=== PATIENT | female | born 1990 | race Caucasian/White ===

== ENCOUNTER 2020-09-18 09:41 | Emergency (ER) | payer SELFPAY ==
[2020-09-18 09:44] VITALS: BP 120/86; PULSE 133; RESP 18; TEMP 36.5; O2SAT 98; BMI 22.1
--- NOTE | 2020-09-18 09:53 | W.ED.FEMALGU ---
Documented by User: MACHO Soliz 09/18/20 17:29 HPI - Female Genitourinary General: Chief complaint: Urogenital-Female Stated complaint: knee pain/nausea/possible kidney infection Time Seen by Provider: 09/18/20 09:48 History of Present Illness: HPI Narrative: Patient is a 30-year-old female comes to the ED with UTI symptoms and back pain. Patient says she started developing dysuria, increased urine frequency and cloudy urine approximately 2 weeks ago. She says over the past several days she started developing some right and left flank pain. She has not been taking any antibiotic to treat her UTI. Associated symptoms: Reports abdominal pain (lower pelvis) and nausea; Deny headache(s) Review of Systems Const: Denies: fever(s), chills or fatigue Eyes: Denies: change in vision or eye discomfort ENMT: Denies: throat pain, odynophagia, nasal discharge or nasal congestion Card: Denies: chest pain, palpitations, edema, swelling of feet/ankles, dyspnea on exertion or orthopnea Resp: Denies: dyspnea, productive cough or non-productive cough GI: Reports: abdominal pain (lower pelvis) and nausea; Denies: vomiting, diarrhea, constipation or hematochezia : Reports: flank pain (bilateral); Denies: dysuria or hematuria Musc: Denies: neck pain, back pain or extremity swelling Skin/Breast: Denies: rash or new lesions Neuro: Denies: headache(s), numbness in extremities or weakness in extremities PFS ED PFSH: Social History Smoking and tobacco status: current every day smoker Physical Exam Const: COMMON NORMALS: no acute distress, patient oriented x3, healthy appearing and alert GENERAL APPEARANCE: cooperative and comfortable HENMT: COMMON NORMALS: normocephalic HEAD & SCALP: normocephalic MOUTH: Normal oral and palatal mucosa present THROAT: posterior oropharynx normal and uvula midline Eye: COMMON NORMALS: Equal, round and reactive pupils present PUPIL: Yes Equal, round and reactive pupils present Neck/C-Spine: COMMON NORMALS: supple GENERAL: Yes normal visual inspection Resp: COMMON NORMALS: normal respiratory effort, No retractions, No use of accessory muscles and clear to auscultation bilaterally AUSCULTATION: clear to auscultation bilaterally Cardio: COMMON NORMALS: regular rate, regular rhythm, S1 normal heart sound present, S2 normal heart sound present, No gallops present (Cardio), No clicks present (Cardio), No murmurs present (Cardio) and Peripheral pulses 2+ throughout RATE: regular rate RHYTHM: regular rhythm HEART SOUNDS: S1 normal heart sound present and S2 normal heart sound present PERIPHERAL PULSES: Peripheral pulses 2+ throughout GI: COMMON NORMALS: Normal to inspection, nondistended, normoactive bowel sounds present, Soft to palpation and no masses PALPATION: Yes Soft to palpation and Yes Tenderness to palpation present (GI) (Mild tenderness on the lower pelvis over bladder.) OTHER: No right upper quadrant tenderness. : BLADDER/KIDNEY EXAM: Yes CVA tenderness bilateral Back/Pelvis: GENERAL BACK: Yes CVA tenderness Extremity: COMMON NORMALS: normal to inspection and no pedal edema Neuro: COMMON NORMALS: patient oriented x3 and moves all extremities SENSORIUM/ORIENTATION: Yes alert Skin: GENERAL SKIN EXAM: dry skin Course Reevaluation(s): Reevaluation #1: Talk to patient about her elevated ALT and AST liver enzymes. Patient says she is not an IV drug user but does state that she drinks more alcohol than she should have daily. I told patient we will go to check her for hepatitis. Vital Signs: Vital signs: Vital Signs Temperature 97.7 F 09/18/20 09:44 Pulse Rate 90 09/18/20 13:42 Respiratory Rate 15 09/18/20 13:42 Blood Pressure 122/90 09/18/20 13:42 Pulse Oximetry 100 09/18/20 13:42 MDM - Female MDM Narrative: Medical decision making narrative: Patient is a 30-year-old female comes to the ED with right left flank pain, nausea and UTI symptoms. Patient had CVA tenderness bilaterally. She also had some tenderness on the left lower pelvic region and over bladder. No right upper quadrant tenderness. UA positive for UTI. White blood cell count 1.9, hemoglobin 19.2 and the rest of CBC unremarkable. AST 805, ALT 643 and alk phos 208. Rest of CMP unremarkable. Hepatitis panel performed and showed she was positive for hep A. Lactic 0.7. Patient was diagnosed with hep A and pyelonephritis. While in the ED she was given IV fluids, Zofran, Toradol and 2 g of Rocephin. She was given instructions about hepatitis a and told she needs to contact her PCP on Saturday morning to follow-up with them about medical management. She was discharged with some Zofran and levofloxacin. Patient was also encouraged to decrease alcohol intake and she was instructed on hepatitis A is highly contagious and instructed on how to prevent transmission. Return to ED precautions given. Patient understood and agreed with plan. Lab Data: Attestation: I reviewed the patient's lab results. Labs: Lab Results 09/18/20 09/18/20 09/18/20 Range/Units 10:17 10:21 10:21 WBC 1.9 L (4.0-10.0) 10^3/ uL RBC 5.52 H (4.1-5.3) 10^6/u L Hgb 19.2 H (11.5-15.3) g/dL Hct 55.3 H (37.0-47.0) % MCV 100.2 H (81-99) fL MCH 34.8 H (28.0-34.0) pg MCHC 34.7 (30.0-36.0) g/dL RDW 13.2 (12.1-15.1) % Plt Count 116 L (130-400) 10^3/c mm MPV 11.1 H (7.4-10.4) fL Neut % (Auto) 52.1 % Lymph % (Auto) 36.3 % [place] % (Auto) 9.5 % Eos % (Auto) 0.5 % Baso % (Auto) 1.1 % Neut # (Auto) 0.99 L (1.8-7.7) 10^3/u L Lymph # (Auto) 0.7 L (0.8-4.8) 10^3/u L [place] # (Auto) 0.2 (0.2-0.9) 10^3/u L Eos # (Auto) 0.0 (0.0-0.8) 10^3/u L Baso # (Auto) 0.0 (0.0-0.1) 10^3/u L Nucleated RBC % (a uto) 0 % Nucleated RBCs # 0.0 /100WBC PT (12.1-14.9) SECO NDS INR (0.8-1.2) Sodium 134 L (136-145) mmol/L Potassium 3.6 (3.5-5.1) mmol/L Chloride 95 L (98-107) mmol/L Carbon Dioxide 27 (22-29) mmol/L Anion Gap 15.6 (5-19) BUN 5 L (6-20) mg/dL Creatinine 0.7 (0.5-0.9) mg/dL GFR Calculation 97.6 (90-130) mL/min Glucose 94 (65-115) mg/dL Calculated Osmolal ity 275 L (285-295) mOsm/k g Lactic Acid (0.5-2.2) mmol/L Calcium 9.1 (8.5-10.5) mg/dL Total Bilirubin 1.0 (0.15-1.2) mg/dL AST 805 H (0-32) U/L ALT 643 H (0-33) U/L Alkaline Phosphata se 208 H (35-105) IU/L Total Protein 7.3 (6.6-8.7) g/dL Albumin 4.4 (3.5-5.2) g/dL Globulin 2.9 (1.3-4.6) g/dL HCG, Qual (Negative) Urine Color Yellow (Yellow) Urine Appearance Hazy A (CLEAR) Urine pH 5 (5-7) Ur Specific Gravit y 1.010 (1.005-1.030) Urine Protein Neg (Negative) Urine Glucose (UA) Norm (Normal) Urine Ketones 2+ H (Negative) Urine Blood Trace H (Negative) Urine Nitrate Positive H (Negative) Urine Bilirubin 1+ H (Negative) Urine Urobilinogen 4 H (Negative) mg/dL Ur Leukocyte Anny ase 1+ H (Negative) Urine RBC 0-4 H (0-2) /hpf Urine WBC 10-15 H (0-5) /hpf Ur Squamous Epith Cells 10-15 H (0-5) /hpf Amorphous Sediment Not Reportable Urine Bacteria 2+ H (NONE) /hpf Urine Mucus Trace /hpf Hepatitis A IgM Ab (Nonreactive) Hep Bs Antigen (Nonreactive) Hep Bs Antibody (0-8.5) Hep B Core Total A b (Nonreactive) Hepatitis C Antibo dy (Nonreactive) 09/18/20 09/18/20 09/18/20 Range/Units 10:21 10:21 10:21 WBC (4.0-10.0) 10^3/ uL RBC (4.1-5.3) 10^6/u L Hgb (11.5-15.3) g/dL Hct (37.0-47.0) % MCV (81-99) fL MCH (28.0-34.0) pg MCHC (30.0-36.0) g/dL RDW (12.1-15.1) % Plt Count (130-400) 10^3/c mm MPV (7.4-10.4) fL Neut % (Auto) % Lymph % (Auto) % [place] % (Auto) % Eos % (Auto) % Baso % (Auto) % Neut # (Auto) (1.8-7.7) 10^3/u L Lymph # (Auto) (0.8-4.8) 10^3/u L [place] # (Auto) (0.2-0.9) 10^3/u L Eos # (Auto) (0.0-0.8) 10^3/u L Baso # (Auto) (0.0-0.1) 10^3/u L Nucleated RBC % (a uto) % Nucleated RBCs # /100WBC PT 14.60 (12.1-14.9) SECO NDS INR 1.11 (0.8-1.2) Sodium (136-145) mmol/L Potassium (3.5-5.1) mmol/L Chloride (98-107) mmol/L Carbon Dioxide (22-29) mmol/L Anion Gap (5-19) BUN (6-20) mg/dL Creatinine (0.5-0.9) mg/dL GFR Calculation (90-130) mL/min Glucose (65-115) mg/dL Calculated Osmolal ity (285-295) mOsm/k g Lactic Acid (0.5-2.2) mmol/L Calcium (8.5-10.5) mg/dL Total Bilirubin (0.15-1.2) mg/dL AST (0-32) U/L ALT (0-33) U/L Alkaline Phosphata se (35-105) IU/L Total Protein (6.6-8.7) g/dL Albumin (3.5-5.2) g/dL Globulin (1.3-4.6) g/dL HCG, Qual Negative (Negative) Urine Color (Yellow) Urine Appearance (CLEAR) Urine pH (5-7) Ur Specific Gravit y (1.005-1.030) Urine Protein (Negative) Urine Glucose (UA) (Normal) Urine Ketones (Negative) Urine Blood (Negative) Urine Nitrate (Negative) Urine Bilirubin (Negative) Urine Urobilinogen (Negative) mg/dL Ur Leukocyte Anny ase (Negative) Urine RBC (0-2) /hpf Urine WBC (0-5) /hpf Ur Squamous Epith Cells (0-5) /hpf Amorphous Sediment Urine Bacteria (NONE) /hpf Urine Mucus /hpf Hepatitis A IgM Ab Reactive H (Nonreactive) Hep Bs Antigen Non-reactive (Nonreactive) Hep Bs Antibody 355.5 H (0-8.5) Hep B Core Total A b Non-reactive (Nonreactive) Hepatitis C Antibo dy Non-reactive (Nonreactive) 09/18/20 Range/Units 11:59 WBC (4.0-10.0) 10^3/ uL RBC (4.1-5.3) 10^6/u L Hgb (11.5-15.3) g/dL Hct (37.0-47.0) % MCV (81-99) fL MCH (28.0-34.0) pg MCHC (30.0-36.0) g/dL RDW (12.1-15.1) % Plt Count (130-400) 10^3/c mm MPV (7.4-10.4) fL Neut % (Auto) % Lymph % (Auto) % [place] % (Auto) % Eos % (Auto) % Baso % (Auto) % Neut # (Auto) (1.8-7.7) 10^3/u L Lymph # (Auto) (0.8-4.8) 10^3/u L [place] # (Auto) (0.2-0.9) 10^3/u L Eos # (Auto) (0.0-0.8) 10^3/u L Baso # (Auto) (0.0-0.1) 10^3/u L Nucleated RBC % (a uto) % Nucleated RBCs # /100WBC PT (12.1-14.9) SECO NDS INR (0.8-1.2) Sodium (136-145) mmol/L Potassium (3.5-5.1) mmol/L Chloride (98-107) mmol/L Carbon Dioxide (22-29) mmol/L Anion Gap (5-19) BUN (6-20) mg/dL Creatinine (0.5-0.9) mg/dL GFR Calculation (90-130) mL/min Glucose (65-115) mg/dL Calculated Osmolal ity (285-295) mOsm/k g Lactic Acid 0.7 (0.5-2.2) mmol/L Calcium (8.5-10.5) mg/dL Total Bilirubin (0.15-1.2) mg/dL AST (0-32) U/L ALT (0-33) U/L Alkaline Phosphata se (35-105) IU/L Total Protein (6.6-8.7) g/dL Albumin (3.5-5.2) g/dL Globulin (1.3-4.6) g/dL HCG, Qual (Negative) Urine Color (Yellow) Urine Appearance (CLEAR) Urine pH (5-7) Ur Specific Gravit y (1.005-1.030) Urine Protein (Negative) Urine Glucose (UA) (Normal) Urine Ketones (Negative) Urine Blood (Negative) Urine Nitrate (Negative) Urine Bilirubin (Negative) Urine Urobilinogen (Negative) mg/dL Ur Leukocyte Anny ase (Negative) Urine RBC (0-2) /hpf Urine WBC (0-5) /hpf Ur Squamous Epith Cells (0-5) /hpf Amorphous Sediment Urine Bacteria (NONE) /hpf Urine Mucus /hpf Hepatitis A IgM Ab (Nonreactive) Hep Bs Antigen (Nonreactive) Hep Bs Antibody (0-8.5) Hep B Core Total A b (Nonreactive) Hepatitis C Antibo dy (Nonreactive) Discharge Plan Discharge Patient Disposition: Home Clinical Impression: Pyelonephritis Hepatitis A Qualifiers: Hepatic coma status: without hepatic coma Qualified Code(s): B15.9 - Hepatitis A without hepatic coma Condition: Stable Prescriptions: New Zofran 4 mg tablet 4 mg PO Q8H Qty: 20 RF: 0 levofloxacin 750 mg tablet 750 mg PO DAILY 5 Days Qty: 5 RF: 0 No Action ibuprofen 200 mg Tablet 400 mg PO PRN RF: 0 Xanax 1 tab PO BID PRN (Reason: UNKNOWN) RF: 0 Discharge Orders: Discharge Order (Routine); Ordered 09/18/20 Ordered By: Mychal Guo Referrals: Juliano Villa, DO [Primary Care Provider] - Discharge Diet: Advance as tolerated Discharge Activity: Increase activity as tolerated Patient Instructions: Hepatitis A, Viral Hepatitis A (ED), Acute Pyelonephritis (ED) Activity Restrictions/Additional Instructions: Follow-up with medical provider as directed. Contact your PCP tomorrow to set up an appointment and discuss hepatitis A management. Take medications as prescribed. Return to the ER or your medical provider if condition worsens. Please read and understand discharge instructions. If any questions, please ask. Discharge Date/Time: 09/18/20 13:43 Coding Level of Care Code ED Depilatory Painter for Chg Fwd Exam Comprehensive Documented by User: Filomena Benitez MD 09/22/20 07:13 HPI - Female Genitourinary General: Chief complaint: Urogenital-Female Stated complaint: knee pain/nausea/possible kidney infection Time Seen by Provider: 09/18/20 09:48 [facility] PFSH: Social History Smoking and tobacco status: current every day smoker Course ED course: I saw this patient with MACHO Soliz. She is here with a UTI and has had symptoms consistent with that. On work-up we found markedly elevated LFTs. This prompted further evaluation and we feel that she was positive for hepatitis a. I examined her and found very minimal tenderness in the right upper quadrant. We had a lengthy discussion about what a diagnosis of hepatitis a signifies, expected course of illness, potential complications, need for follow-up. We also discussed that this is infectious and may be infectious for weeks. She has follow-up with her primary care doctor and understands return precautions. Vital Signs: Vital signs: Vital Signs Temperature 97.7 F 11/01/20 09:44 Pulse Rate 90 09/18/20 13:42 Respiratory Rate 15 09/18/20 13:42 Blood Pressure 122/90 09/18/20 13:42 Pulse Oximetry 100 09/18/20 13:42 MDM - Female Lab Data: Labs: Lab Results 09/18/20 09/18/20 09/18/20 Range/Units 10:17 10:21 10:21 WBC 1.9 L (4.0-10.0) 10^3/ uL RBC 5.52 H (4.1-5.3) 10^6/u L Hgb 19.2 H (11.5-15.3) g/dL Hct 55.3 H (37.0-47.0) % MCV 100.2 H (81-99) fL MCH 34.8 H (28.0-34.0) pg MCHC 34.7 (30.0-36.0) g/dL RDW 13.2 (12.1-15.1) % Plt Count 116 L (130-400) 10^3/c mm MPV 11.1 H (7.4-10.4) fL Neut % (Auto) 52.1 % Lymph % (Auto) 36.3 % [place] % (Auto) 9.5 % Eos % (Auto) 0.5 % Baso % (Auto) 1.1 % Neut # (Auto) 0.99 L (1.8-7.7) 10^3/u L Lymph # (Auto) 0.7 L (0.8-4.8) 10^3/u L [place] # (Auto) 0.2 (0.2-0.9) 10^3/u L Eos # (Auto) 0.0 (0.0-0.8) 10^3/u L Baso # (Auto) 0.0 (0.0-0.1) 10^3/u L Nucleated RBC % (a uto) 0 % Nucleated RBCs # 0.0 /100WBC PT (12.1-14.9) SECO NDS INR (0.8-1.2) Sodium 134 L (136-145) mmol/L Potassium 3.6 (3.5-5.1) mmol/L Chloride 95 L (98-107) mmol/L Carbon Dioxide 27 (22-29) mmol/L Anion Gap 15.6 (5-19) BUN 5 L (6-20) mg/dL Creatinine 0.7 (0.5-0.9) mg/dL GFR Calculation 97.6 (90-130) mL/min Glucose 94 (65-115) mg/dL Calculated Osmolal ity 275 L (285-295) mOsm/k g Lactic Acid (0.5-2.2) mmol/L Calcium 9.1 (8.5-10.5) mg/dL Total Bilirubin 1.0 (0.15-1.2) mg/dL AST 805 H (0-32) U/L ALT 643 H (0-33) U/L Alkaline Phosphata se 208 H (35-105) IU/L Total Protein 7.3 (6.6-8.7) g/dL Albumin 4.4 (3.5-5.2) g/dL Globulin 2.9 (1.3-4.6) g/dL HCG, Qual (Negative) Urine Color Yellow (Yellow) Urine Appearance Hazy A (CLEAR) Urine pH 5 (5-7) Ur Specific Gravit y 1.010 (1.005-1.030) Urine Protein Neg (Negative) Urine Glucose (UA) Norm (Normal) Urine Ketones 2+ H (Negative) Urine Blood Trace H (Negative) Urine Nitrate Positive H (Negative) Urine Bilirubin 1+ H (Negative) Urine Urobilinogen 4 H (Negative) mg/dL Ur Leukocyte Anny ase 1+ H (Negative) Urine RBC 0-4 H (0-2) /hpf Urine WBC 10-15 H (0-5) /hpf Ur Squamous Epith Cells 10-15 H (0-5) /hpf Amorphous Sediment Not Reportable Urine Bacteria 2+ H (NONE) /hpf Urine Mucus Trace /hpf Hepatitis A IgM Ab (Nonreactive) Hep Bs Antigen (Nonreactive) Hep Bs Antibody (0-8.5) Hep B Core Total A b (Nonreactive) Hepatitis C Antibo dy (Nonreactive) 09/18/20 09/18/20 09/18/20 Range/Units 10:21 10:21 10:21 WBC (4.0-10.0) 10^3/ uL RBC (4.1-5.3) 10^6/u L Hgb (11.5-15.3) g/dL Hct (37.0-47.0) % MCV (81-99) fL MCH (28.0-34.0) pg MCHC (30.0-36.0) g/dL RDW (12.1-15.1) % Plt Count (130-400) 10^3/c mm MPV (7.4-10.4) fL Neut % (Auto) % Lymph % (Auto) % [place] % (Auto) % Eos % (Auto) % Baso % (Auto) % Neut # (Auto) (1.8-7.7) 10^3/u L Lymph # (Auto) (0.8-4.8) 10^3/u L [place] # (Auto) (0.2-0.9) 10^3/u L Eos # (Auto) (0.0-0.8) 10^3/u L Baso # (Auto) (0.0-0.1) 10^3/u L Nucleated RBC % (a uto) % Nucleated RBCs # /100WBC PT 14.60 (12.1-14.9) SECO NDS INR 1.11 (0.8-1.2) Sodium (136-145) mmol/L Potassium (3.5-5.1) mmol/L Chloride (98-107) mmol/L Carbon Dioxide (22-29) mmol/L Anion Gap (5-19) BUN (6-20) mg/dL Creatinine (0.5-0.9) mg/dL GFR Calculation (90-130) mL/min Glucose (65-115) mg/dL Calculated Osmolal ity (285-295) mOsm/k g Lactic Acid (0.5-2.2) mmol/L Calcium (8.5-10.5) mg/dL Total Bilirubin (0.15-1.2) mg/dL AST (0-32) U/L ALT (0-33) U/L Alkaline Phosphata se (35-105) IU/L Total Protein (6.6-8.7) g/dL Albumin (3.5-5.2) g/dL Globulin (1.3-4.6) g/dL HCG, Qual Negative (Negative) Urine Color (Yellow) Urine Appearance (CLEAR) Urine pH (5-7) Ur Specific Gravit y (1.005-1.030) Urine Protein (Negative) Urine Glucose (UA) (Normal) Urine Ketones (Negative) Urine Blood (Negative) Urine Nitrate (Negative) Urine Bilirubin (Negative) Urine Urobilinogen (Negative) mg/dL Ur Leukocyte Anny ase (Negative) Urine RBC (0-2) /hpf Urine WBC (0-5) /hpf Ur Squamous Epith Cells (0-5) /hpf Amorphous Sediment Urine Bacteria (NONE) /hpf Urine Mucus /hpf Hepatitis A IgM Ab Reactive H (Nonreactive) Hep Bs Antigen Non-reactive (Nonreactive) Hep Bs Antibody 355.5 H (0-8.5) Hep B Core Total A b Non-reactive (Nonreactive) Hepatitis C Antibo dy Non-reactive (Nonreactive) 09/18/20 Range/Units 11:59 WBC (4.0-10.0) 10^3/ uL RBC (4.1-5.3) 10^6/u L Hgb (11.5-15.3) g/dL Hct (37.0-47.0) % MCV (81-99) fL MCH (28.0-34.0) pg MCHC (30.0-36.0) g/dL RDW (12.1-15.1) % Plt Count (130-400) 10^3/c mm MPV (7.4-10.4) fL Neut % (Auto) % Lymph % (Auto) % [place] % (Auto) % Eos % (Auto) % Baso % (Auto) % Neut # (Auto) (1.8-7.7) 10^3/u L Lymph # (Auto) (0.8-4.8) 10^3/u L [place] # (Auto) (0.2-0.9) 10^3/u L Eos # (Auto) (0.0-0.8) 10^3/u L Baso # (Auto) (0.0-0.1) 10^3/u L Nucleated RBC % (a uto) % Nucleated RBCs # /100WBC PT (12.1-14.9) SECO NDS INR (0.8-1.2) Sodium (136-145) mmol/L Potassium (3.5-5.1) mmol/L Chloride (98-107) mmol/L Carbon Dioxide (22-29) mmol/L Anion Gap (5-19) BUN (6-20) mg/dL Creatinine (0.5-0.9) mg/dL GFR Calculation (90-130) mL/min Glucose (65-115) mg/dL Calculated Osmolal ity (285-295) mOsm/k g Lactic Acid 0.7 (0.5-2.2) mmol/L Calcium (8.5-10.5) mg/dL Total Bilirubin (0.15-1.2) mg/dL AST (0-32) U/L ALT (0-33) U/L Alkaline Phosphata se (35-105) IU/L Total Protein (6.6-8.7) g/dL Albumin (3.5-5.2) g/dL Globulin (1.3-4.6) g/dL HCG, Qual (Negative) Urine Color (Yellow) Urine Appearance (CLEAR) Urine pH (5-7) Ur Specific Gravit y (1.005-1.030) Urine Protein (Negative) Urine Glucose (UA) (Normal) Urine Ketones (Negative) Urine Blood (Negative) Urine Nitrate (Negative) Urine Bilirubin (Negative) Urine Urobilinogen (Negative) mg/dL Ur Leukocyte Anny ase (Negative) Urine RBC (0-2) /hpf Urine WBC (0-5) /hpf Ur Squamous Epith Cells (0-5) /hpf Amorphous Sediment Urine Bacteria (NONE) /hpf Urine Mucus /hpf Hepatitis A IgM Ab (Nonreactive) Hep Bs Antigen (Nonreactive) Hep Bs Antibody (0-8.5) Hep B Core Total A b (Nonreactive) Hepatitis C Antibo dy (Nonreactive) Discharge Plan Discharge Patient Disposition: Home Clinical Impression: Pyelonephritis Hepatitis A Qualifiers: Hepatic coma status: without hepatic coma Qualified Code(s): B15.9 - Hepatitis A without hepatic coma Condition: Stable Prescriptions: New Zofran 4 mg tablet 4 mg PO Q8H Qty: 20 RF: 0 levofloxacin 750 mg tablet 750 mg PO DAILY 5 Days Qty: 5 RF: 0 No Action ibuprofen 200 mg Tablet 400 mg PO PRN RF: 0 Xanax 1 tab PO BID PRN (Reason: UNKNOWN) RF: 0 Discharge Orders: Discharge Order (Routine); Ordered 11/01/20 Ordered By: Mychal Guo Referrals: Juliano Villa, [Primary Care Provider] - Discharge Diet: Advance as tolerated Discharge Activity: Increase activity as tolerated Patient Instructions: Hepatitis A, Viral Hepatitis A (ED), Acute Pyelonephritis (ED) Activity Restrictions/Additional Instructions: Follow-up with medical provider as directed. Contact your PCP tomorrow to set up an appointment and discuss hepatitis A management. Take medications as prescribed. Return to the ER or your medical provider if condition worsens. Please read and understand discharge instructions. If any questions, please ask. Discharge Date/Time: 09/18/20 13:43 Coding Level of Care Code ED Depilatory Painter for Chg Fwd Exam Comprehensive
[2020-09-18 10:28] LABS: Basophils % 1.1 %; Eosinophils % 0.5 %; Hematocrit 55.3 % (37.0-47.0); Hemoglobin 19.2 g/dL (11.5-15.3); Lymphocytes # 0.7 10^3/uL (0.8-4.8); Lymphocytes % 36.3 %; Mean Corpuscular HGB Conc 34.7 g/dL (30.0-36.0); Mean Corpuscular Hemoglobin 34.8 pg (28.0-34.0); Mean Corpuscular Volume 100.2 fL (81-99); Mean Platelet Volume 11.1 fL (7.4-10.4); Monocytes # 0.2 10^3/uL (0.2-0.9); Monocytes % 9.5 %; Neutrophils # 0.99 10^3/uL (1.8-7.7); Neutrophils % 52.1 %; Nucleated Red Blood Cells % 0 %; Platelet Count 116 10^3/cmm (130-400); Red Blood Count 5.52 10^6/uL (4.1-5.3); Red Cell Distribution Width 13.2 % (12.1-15.1); White Blood Count 1.9 10^3/uL (4.0-10.0)
[2020-09-18] MEDS: sodium chloride 0.9% 1,000 ML 999 ML IV ×2 (10:28→11:40)
[2020-09-18 10:48] LABS: HCG, Serum Qual Negative (Negative)
[2020-09-18 10:49] LABS: Alanine Aminotransferase 643 U/L (0-33); Albumin Level 4.4 g/dL (3.5-5.2); Alkaline Phosphatase 208 IU/L (35-105); Anion Gap 15.6 (5-19); Blood Urea Nitrogen 5 mg/dL (6-20); Calcium 9.1 mg/dL (8.5-10.5); Carbon Dioxide 27 mmol/L (22-29); Chloride 95 mmol/L (98-107); Globulin 2.9 g/dL (1.3-4.6); Glomerular Filtration Rate 97.6 mL/min (90-130); Glucose 94 mg/dL (65-115); Osmolality Calculated 275 mOsm/kg (285-295); Potassium 3.6 mmol/L (3.5-5.1); Sodium 134 mmol/L (136-145); Total Protein 7.3 g/dL (6.6-8.7)
[2020-09-18 10:58] LABS: Blood Urine Trace (Negative); Glucose Urine UA Norm (Normal); Ketones Urine 2+ (Negative); Protein Urine Neg (Negative); Urine Appearance Hazy (CLEAR); Urine Color Yellow (Yellow); pH Urine 5 (5-7)
[2020-09-18 10:59] LABS: Bilirubin Urine 1+ (Negative); Leukocyte Esterase Urine 1+ (Negative); Nitrate Urine Positive (Negative); Urobilinogen Urine 4 mg/dL (Negative)
[2020-09-18 11:00] LABS: RBC Urine 0-4 /hpf (0-2)
[2020-09-18 11:01] LABS: Add Urine Culture? No; Bacteria Urine 2+ /hpf; Mucus Urine TRACE /hpf
[2020-09-18 11:04] LABS: Aspartate Amino Transferase 805 U/L (0-32)
[2020-09-18 11:15] LABS: Slide Review Slide Review Perform
[2020-09-18 11:40] LABS: INR 1.11 (0.8-1.2)
[2020-09-18] MEDS: cefTRIAXone 2,000 MG in sodium chloride 0.9% (plus) 50 ML 100 MG IV (11:40)
[2020-09-18] MEDS: ketorolac 30 mg/mL INJ IVP (11:40)
[2020-09-18] MEDS: ondansetron 2 mg/ML SDV 2 mL 4 MG IVP (11:40)
[2020-09-18 11:54] LABS: Hepatitis B Core AB, Total Non-Reactive (Nonreactive); Hepatitis B Surface AB 355.5 (0-8.5); Hepatitis B Surface Antigen Non-Reactive (Nonreactive); Hepatitis C Virus Antibody Non-Reactive (Nonreactive)
[2020-09-18 12:38] LABS: Hepatitis A Antibody IgM Reactive (Nonreactive)
[2020-09-18 13:20] LABS: Lactic Sepsis W/Reflex 0.7 mmol/L (0.5-2.2)
[2020-09-18 13:42] VITALS: BP 122/90; PULSE 90; RESP 15; O2SAT 100
== END 2020-09-18 13:43 | disposition home or self-care (01) ==
PROVIDERS: Emergency Medicine; Emergency Provider Physician Assistant; PCP Family Medicine
DX: N12 Tubulo-interstitial nephritis, not specified as acute or chronic (principal); B15.9 Hepatitis A without hepatic coma; F17.210 Nicotine dependence, cigarettes, uncomplicated
CPT/HCPCS: 12345; 80053; 81001; 83605; 84703; 85025; 85610; 86705; 86706; 86709; 86803; 87040; 87340; 96361; 96365; 96375; 99283; J0696; J1885; J2405; J7030

== ENCOUNTER 2021-05-04 11:39 | Emergency (ER) | payer SELFPAY ==
[2021-05-04 11:42] VITALS: BP 145/99; PULSE 137; RESP 18; TEMP 36.3; O2SAT 100; BMI 23.8
--- NOTE | 2021-05-04 11:49 | ED_ITS ---
HPI - Extremity Problem General: Chief complaint: Extremity Injury, Lower Stated complaint: LEFT FOOT PAIN Time Seen by Provider: 05/04/21 11:42 History of Present Illness: HPI Narrative: This is a 31-year-old female patient who presents to the emergency department with left foot redness and swelling for about 5 days. She thinks she may have gotten bit by an insect but she is not sure. Symptoms have been progressively worsening and she was eventually advised by her mother to come to the emergency department to seek treatment. She denies any fever, denies any drainage from the wound. MD Complaint: extremity pain and extremity swelling Onset (ago): day(s) (5) Pain Consistency: constant Location: left and other (foot) Radiation: none Relieving factors: nothing Exacerbating factors: nothing Review of Systems 2 General: Reports: 10 or more systems reviewed and unremarkable except in HPI and below PFSH ED PFSH: Social History Smoking and tobacco status: current every day smoker Female Reproductive History: Date of last menstrual period: 04/13/21 Physical Exam Const: COMMON NORMALS: no acute distress, average body habitus, patient oriented x3, no limitations, healthy appearing, alert and well nourished HENMT: COMMON NORMALS: normocephalic, atraumatic and moist oral mucous membranes HEAD & SCALP: normocephalic and atraumatic Neck/C-Spine: COMMON NORMALS: no meningeal signs and no JVD Resp: COMMON NORMALS: normal respiratory effort, No retractions, No use of accessory muscles, clear to auscultation bilaterally and percussion normal AUSCULTATION: clear to auscultation bilaterally PERCUSSION: percussion normal Cardio: COMMON NORMALS: no JVD, regular rhythm, S1 normal heart sound present, S2 normal heart sound present, No gallops present (Cardio), No clicks present (Cardio), No murmurs present (Cardio), No rub (Cardio) and Peripheral pulses 2+ throughout RATE: tachycardic RHYTHM: regular rhythm HEART SOUNDS: S1 normal heart sound present and S2 normal heart sound present PERIPHERAL PULSES: Peripheral pulses 2+ throughout GI: COMMON NORMALS: Normal to inspection, nondistended, normoactive bowel sounds present, Soft to palpation, non-tender, No hepatosplenomegaly present, no masses and no bruits PALPATION: Yes Soft to palpation and Yes No hepatosple nomegaly present Extremity: COMMON NORMALS: normal to inspection, full ROM, capillary refill normal, no calf tenderness and no pedal edema LEFT LOWER EXTREMITY: Yes foot & digits Left foot and digits: Yes inspection (6 cm area of erythema with a c entral head. No drainage), Yes palpation (indurated, tender, not fluctuant) and Yes neurovascular exam (intact) Neuro: COMMON NORMALS: patient oriented x3 SENSORIUM/ORIENTATION: Yes alert MENINGEAL SIGNS: Yes no meningeal signs Skin: COMMON NORMALS: turgor normal, no jaundice, no petechiae and no mottling GENERAL SKIN EXAM: turgor normal Course Reevaluation(s): Reevaluation #1: Discussed her lab findings with her. Unremarkable. No signs of sepsis. Since there is no obvious abscess that needs to be incised, she will be discharged on oral antibiotics. She will be given a dose of intramuscular ceftriaxone in the emergency department. She is to follow-up with her primary care provider. She voiced understanding and is in agreement with the plan. Time: 13:22 Vital Signs: Vital signs: Vital Signs Temperature 97.3 F L 05/04/21 11:42 Pulse Rate 121 H 05/04/21 13:44 Respiratory Rate 16 05/04/21 13:44 Blood Pressure 142/102 05/04/21 13:44 Pulse Oximetry 100 05/04/21 13:44 MDM - Extremity (Nontraumatic) MDM Narrative: Medical decision making narrative: 31-year-old female patient with cellulitis to her left foot. On arrival she was significantly tachycardic although she states that this was from her anxiety. Nevertheless she was evaluated to rule out sepsis and on laboratory work-up she does not appear to be septic. White cell count is normal, lactic acid normal, other labs unremarkable. She is managed as a case of cellulitis with oral doxycycline. She was given a dose of intramuscular ceftriaxone in the emergency department. She is to follow-up with her primary care provider. Medical Records: Attestation: I reviewed the patient's medical records. Lab Data: Attestation: I reviewed the patient's lab results. Labs: Lab Results 05/04/21 05/04/21 05/04/21 Range/Units 12:00 12:00 12:00 WBC 7.8 (4.0-10.0) 10^3/ uL RBC 4.56 (4.1-5.3) 10^6/u L Hgb 15.0 (11.5-15.3) g/dL Hct 45.1 (37.0-47.0) % MCV 98.9 (81-99) fL MCH 32.9 (28.0-34.0) pg MCHC 33.3 (30.0-36.0) g/dL RDW 12.0 L (12.1-15.1) % Plt Count 200 (130-400) 10^3/c mm MPV 9.9 (7.4-10.4) fL Neut % (Auto) 77.6 % Lymph % (Auto) 13.2 % [place] % (Auto) 7.6 % Eos % (Auto) 1.2 % Baso % (Auto) 0.3 % Neut # (Auto) 6.04 (1.8-7.7) 10^3/u L Lymph # (Auto) 1.0 (0.8-4.8) 10^3/u L [place] # (Auto) 0.6 (0.2-0.9) 10^3/u L Eos # (Auto) 0.1 (0.0-0.8) 10^3/u L Baso # (Auto) 0.0 (0.0-0.1) 10^3/u L Nucleated RBC % (a uto) 0 % Nucleated RBCs # 0.0 /100WBC Sodium 137 (136-145) mmol/L Potassium 3.7 (3.5-5.1) mmol/L Chloride 102 (98-107) mmol/L Carbon Dioxide 29 (22-29) mmol/L Anion Gap 9.7 (5-19) BUN 7 (6-20) mg/dL Creatinine 0.6 (0.5-0.9) mg/dL GFR Calculation 115.9 (90-130) mL/min Glucose 84 (65-115) mg/dL Calculated Osmolal ity 281 L (285-295) mOsm/k g Lactate 0.9 (0.5-2.2) mmol/L Calcium 8.8 (8.5-10.5) mg/dL Total Bilirubin 0.7 (0.15-1.2) mg/dL AST 24 (0-32) U/L ALT 29 (0-33) U/L Alkaline Phosphata se 75 (35-105) IU/L C-Reactive Protein 13.3 H (0.0-4.9) mg/L Total Protein 6.9 (6.6-8.7) g/dL Albumin 4.0 (3.5-5.2) g/dL Globulin 2.9 (1.3-4.6) g/dL Discharge Plan Discharge Patient Disposition: Home Clinical Impression: Cellulitis of foot Condition: Stable Prescriptions: New doxycycline hyclate 100 mg capsule 100 mg PO BID 7 Days Qty: 14 RF: 0 Continued Xanax 1 mg Tablet 1 mg PO TID PRN (Reason: Anxiety) RF: 0 Children's Ibuprofen 100 mg/5 mL Suspension See Rx Instructions .ROUTE .COMPLEX RF: 0 Discharge Orders: Discharge ED (Routine); Ordered 05/04/21 Ordered By: Jennifer Llamas Referrals: Juliano Villa DO [Primary Care Provider] - 1-3 days Discharge Diet: Usual diet Discharge Activity: Increase activity as tolerated Patient Instructions: Cellulitis (ED) Activity Restrictions/Additional Instructions: Return for any new or worsening symptoms. Follow-up with your primary care provider within 3 days. Elevate your foot to reduce swelling. Continue to ice the foot for 10 to 15 minutes at a time with a break of at least 30 minutes between icing. Take the antibiotic as prescribed. Coding Level of Care Code ED Therapy Site Coordinator for Karoline Fwd Exam Comprehensive
[2021-05-04 12:05] LABS: Basophils % 0.3 %; Eosinophils # 0.1 10^3/uL (0.0-0.8); Eosinophils % 1.2 %; Hematocrit 45.1 % (37.0-47.0); Lymphocytes % 13.2 %; Mean Corpuscular HGB Conc 33.3 g/dL (30.0-36.0); Mean Corpuscular Hemoglobin 32.9 pg (28.0-34.0); Mean Corpuscular Volume 98.9 fL (81-99); Mean Platelet Volume 9.9 fL (7.4-10.4); Monocytes # 0.6 10^3/uL (0.2-0.9); Monocytes % 7.6 %; Neutrophils # 6.04 10^3/uL (1.8-7.7); Neutrophils % 77.6 %; Nucleated Red Blood Cells % 0 %; Platelet Count 200 10^3/cmm (130-400); Red Blood Count 4.56 10^6/uL (4.1-5.3); White Blood Count 7.8 10^3/uL (4.0-10.0)
[2021-05-04 12:28] LABS: Alanine Aminotransferase 29 U/L (0-33); Alkaline Phosphatase 75 IU/L (35-105); Anion Gap 9.7 (5-19); Aspartate Amino Transferase 24 U/L (0-32); Blood Urea Nitrogen 7 mg/dL (6-20); C Reactive Protein 13.3 mg/L (0.0-4.9); Calcium 8.8 mg/dL (8.5-10.5); Carbon Dioxide 29 mmol/L (22-29); Chloride 102 mmol/L (98-107); Globulin 2.9 g/dL (1.3-4.6); Glomerular Filtration Rate 115.9 mL/min (90-130); Glucose 84 mg/dL (65-115); Osmolality Calculated 281 mOsm/kg (285-295); Potassium 3.7 mmol/L (3.5-5.1); Sodium 137 mmol/L (136-145); Total Bilirubin 0.7 mg/dL (0.15-1.2); Total Protein 6.9 g/dL (6.6-8.7)
[2021-05-04 12:29] LABS: Lactate (Lactic Acid level) 0.9 mmol/L (0.5-2.2)
[2021-05-04] MEDS: cefTRIAXone 1,000 MG in lidocaine 1% 2.1 ML 2.1 MG IM (13:38)
[2021-05-04 13:39] VITALS: BP 142/102; PULSE 115; RESP 16; O2SAT 100
[2021-05-04 13:44] VITALS: BP 142/102; PULSE 121; RESP 16; O2SAT 100
== END 2021-05-04 13:45 | disposition home or self-care (01) ==
PROVIDERS: Emergency Provider Family Medicine; PCP Family Medicine
DX: L03.116 Cellulitis of left lower limb (principal); F17.210 Nicotine dependence, cigarettes, uncomplicated
CPT/HCPCS: 80053; 83605; 85025; 86140; 96372; 99283; J0696

== ENCOUNTER 2021-05-06 10:10 | Emergency (ER) | payer SELFPAY ==
[2021-05-06 10:17] VITALS: BP 142/102; PULSE 104; RESP 17; TEMP 36.9; O2SAT 100; BMI 23.9
--- NOTE | 2021-05-06 10:33 | W.ED.EXTPRO ---
HPI - Extremity Problem General: Chief complaint: Extremity Problem,Nontraumatic Stated complaint: L foot swollen, oozing, painful, hot Time Seen by Provider: 05/06/21 10:16 History of Present Illness: HPI Narrative: Comes in with the foot still swollen with an abscess that is developed and oozing drainage from the wound. Patient has not got antibiotics filled. Complaint: extremity pain and extremity swelling Onset (ago): day(s) Pain Consistency: constant Location: left and lower extremity Quality: aching Radiation: none Relieving factors: nothing Associated symptoms: Reports no associated symptoms; Deny chest pain, fever(s) or rash Review of Systems Const: Denies: fever(s), chills or body aches Eyes: Denies: change in vision or blurry vision ENMT: Denies: throat pain or nasal congestion Card: Denies: chest pain or dyspnea on exertion Resp: Denies: dyspnea, productive cough or non-productive cough GI: Denies: abdominal pain, nausea or vomiting Musc: Denies: extremity pain Skin/Breast: Reports: skin tenderness (Abscess medial aspect left foot) and skin swelling; Denies: rash Neuro: Denies: headache(s) Psych: Denies: anxiety or depression Chris/Lymph: Denies: easy bruising PFSH ED PFSH: Social History (Reviewed 05/04/21 @ 11:53 by Jennifer Llamas MD, [facility] [place]) Smoking and tobacco status: current every day smoker Female Reproductive History: Date of last menstrual period: 04/13/21 Physical Exam Const: COMMON NORMALS: no acute distress, average body habitus and patient oriented x3 HENMT: COMMON NORMALS: normocephalic HEAD & SCALP: normal to inspection and normocephalic FACE & SINUS: normal facial exam Eye: COMMON NORMALS: conjunctivae normal GENERAL EYE: appearance normal, both eyes and all related structures CONJUNCTIVA: Yes conjunctivae normal Neck/C-Spine: COMMON NORMALS: no JVD Chest: COMMONS NORMALS: normal inspection of the chest Resp: COMMON NORMALS: normal respiratory effort and clear to auscultation bilaterally AUSCULTATION: clear to auscultation bilaterally Cardio: COMMON NORMALS: no JVD, regular rate and regular rhythm RATE: regular rate RHYTHM: regular rhythm GI: COMMON NORMALS: Normal to inspection, nondistended, normoactive bowel sounds present Extremity: COMMON NORMALS: normal to inspection and full ROM LEFT LOWER EXTREMITY: Yes foot & digits (Draining abscess, carbuncle redness about size of a tennis ball) Left foot and digits: Yes other (Redness is not tracking up the foot.) Neuro: COMMON NORMALS: patient oriented x3 Course Vital Signs: Vital signs: Vital Signs Temperature 98.4 F 05/06/21 10:17 Pulse Rate 104 H 05/06/21 10:17 Respiratory Rate 17 05/06/21 10:17 Blood Pressure 142/102 05/06/21 10:17 Pulse Oximetry 100 05/06/21 10:17 MDM - Extremity (Nontraumatic) MDM Narrative: Medical decision making narrative: Abscess is already draining. Patient placed on clindamycin to cover MRSA. Patient strongly encouraged to get prescription filled soon she lives here and get started on them. Patient said she did not fill the other day because her mom got the prescription and never did get it filled for her. Discharge Plan Discharge Patient Disposition: Home Clinical Impression: Cellulitis of foot Condition: Stable Prescriptions: New clindamycin HCl 300 mg capsule 300 mg PO Q8H 7 Days Qty: 21 RF: 0 tramadol 50 mg tablet 50 mg PO TID PRN (Reason: pain) Qty: 7 RF: 0 No Action Xanax 1 mg Tablet 1 mg PO TID PRN (Reason: Anxiety) RF: 0 Children's Ibuprofen 100 mg/5 mL Suspension See Rx Instructions .ROUTE .COMPLEX RF: 0 doxycycline hyclate 100 mg capsule 100 mg PO BID 7 Days Qty: 14 RF: 0 Discharge Orders: Discharge ED (Routine); Ordered 05/06/21 Ordered By: Espinoza Orozco Referrals: Juliano Villa, [Primary Care Provider] - Discharge Diet: Usual diet Discharge Activity: Increase activity as tolerated Patient Instructions: Abscess (ED) Activity Restrictions/Additional Instructions: Follow-up with medical provider as directed. Take medications as prescribed. Return to the ER or your medical provider if condition worsens. Please read and understand discharge instructions. If any questions ask please. Coding Level of Care Code ED Filtration Plant Operator for Karoline Fwd Exam Comprehensive
[2021-05-06] MEDS: cefTRIAXone 1,000 MG in lidocaine 1% 2.1 ML 2.1 MG IM (10:57)
[2021-05-06 11:13] VITALS: PULSE 101; RESP 17; O2SAT 97
== END 2021-05-06 11:14 | disposition home or self-care (01) ==
PROVIDERS: Emergency Provider Nurse Practitioner Family; PCP Family Medicine
DX: L03.116 Cellulitis of left lower limb (principal); F17.210 Nicotine dependence, cigarettes, uncomplicated
CPT/HCPCS: 87070; 87077; 87186; 96372; 99283; J0696

== ENCOUNTER 2022-07-18 10:42 | Emergency (ER) | payer MEDICAID, SELFPAY ==
[2022-07-18 10:53] VITALS: BP 133/84; PULSE 130; RESP 18; TEMP 36.7; O2SAT 100; BMI 26.5
--- NOTE | 2022-07-18 11:01 | W.ED.FEMALGU ---
HPI - Female Genitourinary General: Chief complaint: Back Pain/Injury Stated complaint: peeing blood and in pain Time Seen by Provider: 07/18/22 10:43 Source: patient Mode of arrival: ambulatory Limitations: no limitations History of Present Illness: Patient is a nice 32-year-old female presents to ED today for evaluation of possible kidney infection. Patient tells me over the past 4 days she has been having pain to her suprapubic region, right side of abdomen/back, and right flank. She states pain did not begin abruptly. She has no history of kidney or ureter stones. She states she has noticed hematuria, cloudy and odorous urine, dysuria, and urinary frequency. Patient states she is not running fevers. She feels slightly nauseous secondary to pain but has not had any episodes of emesis. She is having normal bowel movements. She denies vaginal discharge, odor, or bleeding. MD elicited complaint: dysuria, UTI , back pain and flank pain Onset (ago): day(s) Severity: moderate Consistency: constant Vaginal discharge: none Vaginal bleeding: none Urinary symptoms: Dysuria, Flank Pain, Foul Smelling Urine, Frequency and Hematuria Relieving factors: none Associated symptoms: Reports abdominal pain and nausea; Deny headache(s) or vaginal discharge Treatment prior to arrival: none Patient : No Date of Last Menstrual Period: 04/13/21 Review of Systems Const: Denies: fever(s), chills, body aches, fatigue or malaise Card: Denies: chest pain Resp: Denies: dyspnea, productive cough, non-productive cough or chest congestion GI: Reports: abdominal pain and nausea; Denies: vomiting, diarrhea, constipation or change in bowel habits : Reports: flank pain, dysuria, urinary frequency, urinary urgency and hematuria; Denies: dribbling, nocturia, oliguria, urinary incontinence, vaginal odor, vaginal bleeding, vaginal discharge or pelvic pain Musc: Reports: back pain (R flank/back); Denies: neck pain, extremity pain, joint pain or joint swelling Skin/Breast: Denies: rash Neuro: Denies: headache(s), numbness in extremities, weakness in extremities or sensory changes PFSH ED PFSH: Social History Smoking and tobacco status: current every day smoker Female Reproductive History: Date of last menstrual period: 04/13/21 Physical Exam Const: COMMON NORMALS: no acute distress, average body habitus, patient oriented x3, no limitations, healthy appearing, alert and well nourished GENERAL APPEARANCE: cooperative Resp: COMMON NORMALS: normal respiratory effort and clear to auscultation bilaterally AUSCULTATION: clear to auscultation bilaterally Cardio: COMMON NORMALS: regular rhythm RATE: tachycardic RHYTHM: regular rhythm GI: COMMON NORMALS: Normal to inspection, nondistended, normoactive bowel sounds present, Soft to palpation, No hepatosplenomegaly present and no masses INSPECTION: Yes normal to inspection AUSCULTATION: Yes normoactive bowel sounds PALPATION: Yes Soft to palpation, Yes Tenderness to palpation present (GI) (mild tenderness throughout R side of abdomen, suprapubic ), No Guarding due to palpation present (GI), No Rigid due to palpation and Yes No hepatosplenomegaly present : BLADDER/KIDNEY EXAM: Yes CVA tenderness on the right Back/Pelvis: COMMON NORMALS: thoracic and lumbar spine normal to inspection, no thoracic nor lumbar tenderness and thoraco-lumbar ROM normal GENERAL BACK: Yes CVA tenderness CVA tenderness: right Extremity: COMMON NORMALS: normal to inspection GENERAL: Yes normal exam except as noted Neuro: SOPHIA COMA SCALE: document GCS findings Sophia coma scale eye opening: Spontaneous [place] coma scale verbal response: Orientated Sophia coma scale motor response: Obey commands Sophia coma scale total score: 15 COMMON NORMALS: patient oriented x3, moves all extremities, no focal motor deficits, no sensory deficits noted and gait normal SENSORIUM/ORIENTATION: Yes alert Skin: COMMON NORMALS: no rashes or lesions noted GENERAL SKIN EXAM: no rashes or lesions noted Course Vital Signs: Vital signs: Vital Signs Temperature 98.1 F 07/18/22 10:53 Pulse Rate 117 H 07/18/22 11:26 Respiratory Rate 15 07/18/22 11:26 Blood Pressure 121/79 07/18/22 11:26 Pulse Oximetry 100 07/18/22 11:30 Oxygen Delivery Me thod 07/18/22 11:30 [facility] - Female Medical Decision Making Patient is a nice 32-year-old female here for complaints of right flank, back, abdominal pain accompanied with multiple urinary symptoms. Her evaluation here is consistent with a right-sided pyelonephritis. I do not have any concerns for nephro or ureterolithiasis with infection. Patient's vital signs are stable apart from tachycardia. Patient tells me she always has a high heart rate especially in hospitals. Looking at previous documentation her heart rate is often times elevated. She is not febrile. She has a normal white count. She is a normal lactate. Patient was given IV Rocephin and will be sent home on cefdinir. She is requesting liquid medication because she cannot swallow pills. Will also treat with pain/nausea meds. Strict return ED precautions given which patient verbalized understanding of. Lab Data : 07/18/22 11:07 07/18/22 11:07 Laboratory Results WBC 7.6 10^3/uL (4.0-10.0) 07/18/22 11:07 RBC 4.76 10^6/uL (4.1-5.3) 07/18/22 11:07 Hgb 15.7 g/dL (11.5-15.3) H 07/18/22 11:07 Hct 46.8 % (37.0-47.0) 07/18/22 11:07 MCV 98.3 fl (81-99) 07/18/22 11:07 MCH 33.0 pg (28.0-34.0) 07/18/22 11:07 MCHC 33.5 g/dL (30.0-36.0) 07/18/22 11:07 RDW 12.4 % (12.1-15.1) 07/18/22 11:07 Plt Count 214 10^3/cmm (130-400) 07/18/22 11:07 MPV 9.8 fL (7.4-10.4) 07/18/22 11:07 Neut % (Auto) 75.8 % 07/18/22 11:07 Lymph % (Auto) 13.7 % 07/18/22 11:07 [place] % (Auto) 8.9 % 07/18/22 11:07 Eos % (Auto) 0.7 % 07/18/22 11:07 Baso % (Auto) 0.4 % 07/18/22 11:07 Neut # (Auto) 5.79 10^3/uL (1.8-7.7) 07/18/22 11:07 Lymph # (Auto) 1.1 10^3/uL (0.8-4.8) 07/18/22 11:07 [place] # (Auto) 0.7 10^3/uL (0.2-0.9) 07/18/22 11:07 Eos # (Auto) 0.1 10^3/uL (0.0-0.8) 07/18/22 11:07 Baso # (Auto) 0.0 10^3/uL (0.0-0.1) 07/18/22 11:07 Nucleated RBC % (auto) 0 % 07/18/22 11:07 Nucleated RBCs # 0.0 /100WBC 07/18/22 11:07 Sodium 135 mmol/L (136-145) L 07/18/22 11:07 Potassium 3.8 mmol/L (3.5-5.1) 07/18/22 11:07 Chloride 99 mmol/L (98-107) 07/18/22 11:07 Carbon Dioxide 27 mmol/L (22-29) 07/18/22 11:07 Anion Gap 12.8 (5-19) 07/18/22 11:07 BUN 4 mg/dL (6-20) L 07/18/22 11:07 Creatinine 0.7 mg/dL (0.5-0.9) 07/18/22 11:07 GFR Calculation 96.4 mL/min (90-130) 07/18/22 11:07 Glucose 94 mg/dL (65-115) 07/18/22 11:07 Calculated Osmolality 277 mOsm/kg (285-295) L 07/18/22 11:07 Lactic Acid 1.2 mmol/L (0.5-2.2) 07/18/22 11:07 Calcium 9.4 mg/dL (8.5-10.5) 07/18/22 11:07 Total Bilirubin 0.8 mg/dL (0.15-1.2) 07/18/22 11:07 AST 23 U/L (0-32) 07/18/22 11:07 ALT 20 U/L (0-33) 07/18/22 11:07 Alkaline Phosphatase 94 U/L (35-105) 07/18/22 11:07 Total Protein 7.3 g/dL (6.6-8.7) 07/18/22 11:07 Albumin 4.0 g/dL (3.5-5.2) 07/18/22 11:07 Globulin 3.3 g/dL (1.3-4.6) 07/18/22 11:07 HCG, Qual Negative (Negative) 07/18/22 11:13 Urine Color Yellow (Yellow) 07/18/22 11:07 Urine Appearance Cloudy (CLEAR) 07/18/22 11:07 Urine pH 6 (5-7) 07/18/22 11:07 Ur Specific [place] 1.015 (1.005-1.030) 07/18/22 11:07 Urine Protein 2+ (Negative) H 07/18/22 11:07 Urine Glucose (UA) Norm (Normal) 07/18/22 11:07 Urine Ketones 1+ (Negative) H 07/18/22 11:07 Urine Blood 3+ (Negative) H 07/18/22 11:07 Urine Nitrate Positive (Negative) H 07/18/22 11:07 Urine Bilirubin Neg (Negative) 07/18/22 11:07 Urine Urobilinogen 1 mg/dL (Negative) H 07/18/22 11:07 Ur Leukocyte Esterase 2+ (Negative) H 07/18/22 11:07 Urine RBC Too numerous to cnt /hpf (0-2) H 07/18/22 11:07 Urine WBC Too numerous to cnt /hpf (0-5) H 07/18/22 11:07 Ur Squamous Epith Cells 0-4 /hpf (0-5) H 07/18/22 11:07 Amorphous Sediment Not Reportable 07/18/22 11:07 Urine Bacteria 4+ /hpf (NONE) H 07/18/22 11:07 Discharge Plan Discharge Patient Disposition: Home Clinical Impression: Pyelonephritis Condition: Stable Prescriptions: New cefdinir 250 mg/5 mL suspension for reconstitution 300 mg PO BID 10 Days Qty: 120 0RF ondansetron 4 mg tablet,disintegrating 4 mg PO Q8H PRN (Reason: nausea and vomiting) Qty: 14 0RF tramadol 50 mg tablet 50 mg PO Q6H PRN (Reason: pain) Qty: 10 0RF No Action Children's Ibuprofen 100 mg/5 mL Suspension See Rx Instructions .ROUTE .COMPLEX Rx Instructions: drinks half a bottle as needed Discharge Orders: Discharge ED (Routine); Ordered 07/18/22 Ordered By: Janna Medina Referrals: Juliano Villa DO [Primary Care Provider] - Patient Instructions: Kidney Infection (ED), Pyelonephritis Activity Restrictions/Additional Instructions: As we discussed you need to begin antibiotics immediately. You need to return to the emergency department for worsening or severe flank/abdominal pain, repetitive episodes of vomiting, inability to hold down or take your antibiotics, fevers greater than 100.4, generally feeling worse or unwell, or any other concerns you may have. Hope you begin to feel better soon. Coding Level of Care Code ED Project Production Engineer for Chg Fwd Exam Comprehensive
[2022-07-18 11:18] LABS: Basophils % 0.4 %; Eosinophils # 0.1 10^3/uL (0.0-0.8); Eosinophils % 0.7 %; Hematocrit 46.8 % (37.0-47.0); Hemoglobin 15.7 g/dL (11.5-15.3); Lymphocytes # 1.1 10^3/uL (0.8-4.8); Lymphocytes % 13.7 %; Mean Corpuscular HGB Conc 33.5 g/dL (30.0-36.0); Mean Corpuscular Volume 98.3 fl (81-99); Mean Platelet Volume 9.8 fL (7.4-10.4); Monocytes # 0.7 10^3/uL (0.2-0.9); Monocytes % 8.9 %; Neutrophils # 5.79 10^3/uL (1.8-7.7); Neutrophils % 75.8 %; Nucleated Red Blood Cells % 0 %; Platelet Count 214 10^3/cmm (130-400); Red Blood Count 4.76 10^6/uL (4.1-5.3); Red Cell Distribution Width 12.4 % (12.1-15.1); White Blood Count 7.6 10^3/uL (4.0-10.0)
[2022-07-18] MEDS: sodium chloride 0.9% 1,000 ML 999 ML IV (11:20)
[2022-07-18 11:26] VITALS: BP 121/79; PULSE 117; RESP 15; O2SAT 100
[2022-07-18 11:30] VITALS: O2SAT 100
[2022-07-18 11:41] LABS: HCG, Serum Qual Negative (Negative)
[2022-07-18 11:41] LABS: Lactic Sepsis W/Reflex 1.2 mmol/L (0.5-2.2)
[2022-07-18 11:46] LABS: Blood Urine 3+ (Negative); Glucose Urine UA Norm (Normal); Ketones Urine 1+ (Negative); Nitrate Urine Positive (Negative); Protein Urine 2+ (Negative); Specific Gravity, Urine 1.015 (1.005-1.030); Urine Appearance Cloudy (CLEAR); Urine Color Yellow (Yellow); pH Urine 6 (5-7)
[2022-07-18 11:47] LABS: Add Urine Culture? Yes; Add Urine Microscopic? YES; Bacteria Urine 4+ /hpf; Bilirubin Urine Neg (Negative); Leukocyte Esterase Urine 2+ (Negative); RBC Urine TOO NUMEROUS TO CNT /hpf (0-2); Squamous Epithelial Cell Urine 0-4 /hpf (0-5); Urobilinogen Urine 1 mg/dL (Negative); WBC Urine TOO NUMEROUS TO CNT /hpf (0-5)
[2022-07-18 11:53] LABS: Alanine Aminotransferase 20 U/L (0-33); Alkaline Phosphatase 94 U/L (35-105); Aspartate Amino Transferase 23 U/L (0-32); Blood Urea Nitrogen 4 mg/dL (6-20); Calcium 9.4 mg/dL (8.5-10.5); Carbon Dioxide 27 mmol/L (22-29); Chloride 99 mmol/L (98-107); Creatinine Clr Calc Pharmacy 105.8478; Globulin 3.3 g/dL (1.3-4.6); Glomerular Filtration Rate 96.4 mL/min (90-130); Glucose 94 mg/dL (65-115); Osmolality Calculated 277 mOsm/kg (285-295); Sodium 135 mmol/L (136-145); Total Bilirubin 0.8 mg/dL (0.15-1.2); Total Protein 7.3 g/dL (6.6-8.7)
[2022-07-18 11:54] LABS: Anion Gap 12.8 (5-19); Potassium 3.8 mmol/L (3.5-5.1)
[2022-07-18] MEDS: cefTRIAXone 1,000 MG in sodium chloride 0.9% (plus) 50 ML 100 MG IV (11:54)
[2022-07-18 12:34] VITALS: BP 126/85; PULSE 117; RESP 15; TEMP 37.2; O2SAT 99
[2022-07-18 12:35] VITALS: BP 126/85; PULSE 117; RESP 15; TEMP 37.2; O2SAT 99
== END 2022-07-18 12:40 | disposition home or self-care (01) ==
PROVIDERS: Emergency Provider Physician Assistant; PCP Family Medicine
DX: N12 Tubulo-interstitial nephritis, not specified as acute or chronic (principal); F17.210 Nicotine dependence, cigarettes, uncomplicated
CPT/HCPCS: 80053; 81001; 83605; 84703; 85025; 87077; 87086; 87186; 96365; 99284; J0696; J7030